=== PATIENT | male | born 1990 | race Hispanic/Latino ===

== ENCOUNTER 2022-04-29 12:00 | Emergency (ER) | payer SELFPAY ==
[2022-04-29 13:11] VITALS: BP 138/75; PULSE 56; RESP 18; TEMP 36.7; O2SAT 100
--- NOTE | 2022-04-29 14:30 | ED.GENADULT ---
HPI - General Adult General Chief complaint: Skin/Abscess/Foreign Body Stated complaint: insect bite on face Time Seen by Provider: 04/29/22 14:30 Source: patient Mode of arrival: ambulatory Limitations: no limitations History of Present Illness HPI narrative: 22-year-old male patient presents to the [facility] with complaints of a wound to the right cheek on his face for the past 3 days. Denies any fevers, body aches or chills. Denies being bitten by anything that they are aware of. Related Data Allergies Allergy/AdvReac Type Severity Reaction Status Date / Time No Known Allergies Allergy Verified 04/29/22 14:40 Review of Systems Review of Systems: CONSTITUTIONAL: Denies fever, chills, or sweats. EYES: Denies visual changes, redness, or discharge. ENT: Denies rhinorrhea, congestion, sore throat, or otalgia. CARDIOVASCULAR: Denies chest pain, palpitations, or edema. RESPIRATORY: Denies cough or dyspnea. GASTROINTESTINAL: Denies abdominal pain, nausea, vomiting, or diarrhea. GENITOURINARY: Denies dysuria or hematuria. SKIN: Denies rash or itching. Wound to right cheek x3 days MUSCULOSKELETAL: Denies back pain, joint pain, or myalgia. NEUROLOGIC: Denies headache, numbness, or weakness. PSYCHIATRIC: Denies anxiety or depression. PMFSH Comments At the time of my signature I agree with nursing past medical history, surgical, social, and family history. There is no relevant family history pertinent to the presenting complaint. Exam Narrative: GENERAL: Well-appearing, well-nourished, and in no acute distress. HEAD: Normocephalic, atraumatic. EYES: PERRLA and EOMI. ENT: Nares clear, no rhinorrhea or epistaxis. Mucous membranes moist. NECK: Supple. No lymphadenopathy CHEST: Clear to auscultation. No respiratory distress. HEART: Regular rate and rhythm. No murmur heard. Normal peripheral pulses. ABDOMEN: Soft, nontender, nondistended, normal active bowel sounds. EXTREMITIES: Normal range of motion. No edema. SKIN: Warm, dry, no rash. Patient has approximately 4 cm in diameter raised abscess noted on the right cheek. There does not seem to be any involvement in the oral or dental cavity on inspection. NEURO: No focal deficits. Alert and oriented x3. Course Course Level of Care: Express Care Visit Vital Signs Vital signs: Vital Signs Temperature 36.7 C 04/29/22 13:11 Pulse Rate 56 L 04/29/22 13:11 Respiratory Rate 18 04/29/22 13:11 Blood Pressure 138/75 04/29/22 13:11 Pulse Oximetry 100 04/29/22 13:11 Oxygen Delivery Room Air 04/29/22 13:11 Temperature 36.7 C 04/29/22 13:11 Pulse Rate 56 L 04/29/22 13:11 Respiratory Rate 18 04/29/22 13:11 Blood Pressure 138/75 04/29/22 13:11 Pulse Oximetry 100 04/29/22 13:11 Oxygen Delivery Room Air 04/29/22 13:11 Vital signs reviewed. Procedures Abscess I/D face: Date of Incision: 04/29/22 Time of Incision: 14:55 Side (if applicable): right Local Anesthetic: lidocaine 1% Amount of anesthesia used (mL): 4 Technique: incised with #11 blade Irrigation: Yes Packing used?: iodoform I&D Results: Pus and Blood Abcess I&D Additional Comments: The procedure was explained and verbal consent is obtained. The wound was anesthetized with 4ml of 1% lidocaine with good anesthesia. Sterile drape and prep are done. The fluctuant center was incised with #11 blade scalpel. A large amount of pus and blood was expressed or removed. The wound was probed for loculated area and irrigated with normal saline. Wound was packed with iodoform. Dressing was applied. The patient tolerated the procedure well. Medical Decision Making MDM Narrative Medical decision making narrative: Plan of care patient is to do an I and D of the abscess on the cheek and culture of the discharge incident off to the lab. I will reassess patient has since resulted Differential Diagnosis Differential Diagnosis: Differential di
== END 2022-04-29 15:05 | disposition home or self-care (01) ==
PROVIDERS: Emergency Provider Nurse Practitioner Family
DX: L02.01 Cutaneous abscess of face (principal)
CPT/HCPCS: 10061; 87070; 87075; 87076; 87205; 99203; G0463